=== PATIENT | female | born 1980 | race Caucasian/White ===

== ENCOUNTER 2024-04-24 22:07 | Emergency (ER) | payer OTHER, SELFPAY ==
[2024-04-24 22:17] VITALS: BP 149/94; PULSE 74; RESP 16; TEMP 37.1; O2SAT 99; BMI 31.8
--- NOTE | 2024-04-24 22:29 | CRLHL7_ITS ---
For Patients: As a result of the Century Cures Act, medical imaging exams and procedure reports are released immediately into your electronic medical record. You may view this report before your referring provider. If you have questions, please contact your health care provider. INDICATION: Trauma, fall. TECHNIQUE: CT head without contrast. COMPARISON: None. FINDINGS: CSF spaces: Within normal limits for age. Brain parenchyma: The cook-white differentiation is maintained. No sign of mass, hemorrhage, or midline shift. Skull base and calvarium: The visualized paranasal sinuses and mastoid air cells demonstrate no acute or significant findings. The visualized orbits are grossly unremarkable. No skull fractures. Soft tissue swelling and contusion in the right scalp temporal region. IMPRESSION: 1. No acute intracranial abnormality. 2. Soft tissue swelling and contusion in the right scalp temporal region. No acute calvarial fracture. Please note that all CT scans at this facility use dose modulation, iterative reconstruction, and/or weight-based dosing when appropriate to reduce radiation dose to as low as reasonably achievable. Dictated by Jose Francisco Santiago MD @ 04/25/2024 1:24:49 AM (Electronically Signed)
--- NOTE | 2024-04-24 22:29 | CRLHL7_ITS ---
For Patients: As a result of the Century Cures Act, medical imaging exams and procedure reports are released immediately into your electronic medical record. You may view this report before your referring provider. If you have questions, please contact your health care provider. INDICATION: Trauma, fall. TECHNIQUE: CT cervical spine without contrast. COMPARISON: None. FINDINGS: Vertebrae: Straightening of the normal cervical lordosis, which may be due to muscle spasm or positioning. There are no fractures or suspicious bony lesions. Discs and facet joints: There are degenerative disc changes most severe at C5-6 and C6-7. There are multilevel degenerative changes in the facets. Extraspinal findings: Paraspinous soft tissues are unremarkable. IMPRESSION: 1. No acute fracture or traumatic subluxation of the cervical spine. 2. Multilevel degenerative spondylosis. Please note that all CT scans at this facility use dose modulation, iterative reconstruction, and/or weight-based dosing when appropriate to reduce radiation dose to as low as reasonably achievable. Dictated by Jose Francisco Santiago MD @ 04/25/2024 1:26:06 AM (Electronically Signed)
[2024-04-24] MEDS: LIDOCAINE/EPINEP/TETRACAINE 3 ML GEL..ML. TOPICAL (22:51)
[2024-04-24] MEDS: ONDANSETRON ODT 4 MG TAB PO (22:51)
[2024-04-24] MEDS: ACETAMINOPHEN 500 MG TABLET 1000 MG PO (22:52)
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
[2024-04-25 00:44] VITALS: BP 148/78; PULSE 98; RESP 16; TEMP 36.7
== END 2024-04-25 00:45 | disposition home or self-care (01) ==
PROVIDERS: Emergency Provider Family Medicine
DX: S01.111A Laceration without foreign body of right eyelid and periocular area, initial encounter (principal); V86.59XA Driver of other special all-terrain or other off-road motor vehicle injured in nontraffic accident, initial encounter
CPT/HCPCS: 12011; 70450; 72125; 99283; 99284; A9270